=== PATIENT | male | born 1935 | race Caucasian/White ===

== ENCOUNTER 2018-01-10 07:40 | Outpatient (CLI) | payer MEDICARE, OTHER ==
[2018-01-10 10:57] LABS: ALBUMIN 3.9 g/dL (3.2-5.5); ALBUMIN/GLOBULIN RATIO 1.2 (1.0-2.2); ALKALINE PHOSPHATASE 59 IU/L (42-121); ALT ALANINE AMINOTRANSFERASE 27 IU/L (10-60); AST ASPARTATE AMINOTRANSFERASE 23 IU/L (10-42); BILIRUBIN,TOTAL 0.6 mg/dL (0.2-1.0); BUN - BLOOD UREA NITROGEN 16 mg/dL (6-20); CALCIUM 9.1 mg/dL (8.5-10.3); CARBON DIOXIDE - CO2 29 mmol/L (21-32); CHLORIDE 102 mmol/L (101-111); CHOL/HDL RATIO 4.3 (<5.0); CHOLESTEROL 169 mg/dL; CREATININE 0.9 mg/dL (0.6-1.2); GFR - MDRD 80 (>89); GLUCOSE 110 mg/dL (70-100); HDL CHOLESTEROL 39 mg/dL; LDL CHOLESTEROL,CALCULATED 100 mg/dL; LDL/HDL RATIO 2.6 (<3.6); SODIUM 137 mmol/L (135-145); TOTAL PROTEIN 7.1 g/dL (6.7-8.2); VLDL CHOLESTEROL 30 mg/dL
[2018-01-10 11:09] LABS: HEMOGLOBIN A1C 0.61 g/dL; HEMOGLOBIN A1C % 5.4 % (4.6-6.2)
== END 2018-01-10 07:41 | disposition home or self-care (01) ==
LOC: LAB.F 07:40
PROVIDERS: ATTEND Family Medicine
DX: R73.9 Hyperglycemia, unspecified (principal); I10 Essential (primary) hypertension; E87.5 Hyperkalemia; Z12.5 Encounter for screening for malignant neoplasm of prostate
CPT/HCPCS: 36415; 80053; 80061; 83036; G0103; 83721; 84153

== ENCOUNTER 2019-12-31 10:27 | Outpatient (CLI) | payer MEDICARE, OTHER ==
[2019-12-31 10:50] LABS: BASOPHILS # (AUTO) 0.1 10^3/uL (0.0-0.1); BASOPHILS % (AUTO) 0.9 %; EOSINOPHILS # (AUTO) 0.3 10^3/uL (0.0-0.7); EOSINOPHILS % (AUTO) 2.5 %; HGB - HEMOGLOBIN 15.2 g/dL (14.0-18.0); LYMPHOCYTES % (AUTO) 17.9 %; MEAN CORPUSCULAR HGB CONC 33.6 g/dL (32.0-36.0); MEAN CORPUSCULAR VOLUME 98.3 fL (80.0-94.0); MEAN PLATELET VOLUME 8.9 fL (7.4-11.4); MONOCYTES # (AUTO) 1.3 10^3/uL (0.0-1.0); MONOCYTES % (AUTO) 11.4 %; NEUTROPHILS # (AUTO) 7.3 10^3/uL (1.5-6.6); NEUTROPHILS % (AUTO) 65.9 %; PLT - PLATELET COUNT 221 10^3/uL (130-450); RED CELL DISTRIBUTION WIDTH 14.1 % (12.0-15.0); WHITE BLOOD COUNT 11.1 x10^3/uL (4.8-10.8)
[2019-12-31 11:06] LABS: ALBUMIN 4.5 g/dL (3.2-5.5); ALBUMIN/GLOBULIN RATIO 1.7 (1.0-2.2); BILIRUBIN,TOTAL 0.4 mg/dL (0.2-1.0); CALCIUM 9.1 mg/dL (8.5-10.3); CREATININE 0.8 mg/dL (0.6-1.2); TOTAL PROTEIN 7.2 g/dL (6.7-8.2)
== END 2019-12-31 10:28 | disposition home or self-care (01) ==
LOC: LAB 10:27
PROVIDERS: ATTEND Family Medicine
DX: D48.5 Neoplasm of uncertain behavior of skin (principal); I10 Essential (primary) hypertension
CPT/HCPCS: 36415; 80053; 84443; 85025

== ENCOUNTER 2020-03-08 16:34 | Outpatient (CLI) | payer MEDICARE, OTHER | END 2020-03-08 16:35 | disposition critical access hospital (66) | LOC: EMS 16:34 | PROVIDERS: ATTEND Surgery | DX: R06.02 Shortness of breath (principal); R00.0 Tachycardia, unspecified; R03.0 Elevated blood-pressure reading, without diagnosis of hypertension | CPT/HCPCS: A0425; A0427 ==

== ENCOUNTER 2020-03-08 17:03 | Emergency (ER) | payer MEDICARE, OTHER ==
--- NOTE | 2020-03-08 17:21 | ED Physician Documentation ---
PD HPI DYSPNEA - Stated complaint Stated Complaint: SOA - Chief complaint Chief Complaint: Cardiac - History obtained from History obtained from: Patient - History of Present Illness Timing - onset: How many weeks ago (1-2) Timing - onset during: Rest, Light activity Timing - duration: Weeks (1-2) Timing - details: Gradual onset Inciting event(s): No: URI, Immobilization/travel Worsened by: Exertion (The patient has noticed gradual worsening of dyspnea on exertion and then dyspnea at rest and orthopnea over the last 1 to 2 weeks. He has not had chest pain per se. He has noticed some swelling in his legs but mostly felt bloating of his abdomen. He has not had any cough. He denies any environm), Laying flat Associated symptoms: No: Fever, Cough Similar symptoms before: Has not had sx before Recently seen: Not recently seen Review of Systems Constitutional: reports: Fatigue. denies: Fever, Myalgias Nose: denies: Rhinorrhea / runny nose, Congestion Throat: denies: Sore throat Cardiac: reports: Chest pain / pressure (pressure without pain per se. No pleuritic pain.), Pedal edema. denies: Palpitations, Calf pain Respiratory: reports: Dyspnea. denies: Cough, Hemoptysis, Wheezing GI: reports: Abdominal Swelling. denies: Abdominal Pain, Nausea, Vomiting, Diarrhea : denies: Dysuria Musculoskeletal: denies: Neck pain, Back pain Neurologic: reports: Generalized weakness. 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 Good sats with NC 2 lpm. ) - General General: Alert and oriented X 3, Well developed/nourished, Other (He does appear anxious with increased work of breathing.) - HEENT HEENT: Pharynx benign, Other (Right lower eyelid with a demarcated raised granulomatous appearing skin lesion that he says it is stable for a while now) - Neck Neck: Supple, no meningeal sign, No adenopathy - Cardiac Cardiac: RRR, No murmur - Respiratory Respiratory: No: Clear bilaterally (There is some crackles at the bases. No wheezes noted. There is diminished breath sounds bilaterally.) - Abdomen Abdomen: Soft, Non tender - Back Back: No CVA TTP - Derm Derm: Normal color, Warm and dry - Extremities Extremities: Normal ROM s pain, No calf tenderness / cord, Other (1+ edema in both legs up to the knees) - Neuro Neuro: Alert and oriented X 3, No motor deficit, Normal speech Results - Vitals Vitals: Vital Signs - 24 hr 03/08/20 03/08/20 03/08/20 17:11 17:36 18:06 Temperature 36.3 C L Heart Rate 108 H 105 H 99 Respiratory 28 H 26 H 23 Rate Blood Pressure 146/92 H 148/95 H O2 Saturation 94 96 03/08/20 03/08/20 03/08/20 18:21 18:55 19:50 Temperature Heart Rate 75 85 90 Respiratory 22 20 18 Rate Blood Pressure 129/85 H 120/82 H 135/90 H O2 Saturation 92 94 94 03/08/20 03/08/20 20:23 21:07 Temperature Heart Rate 91 Respiratory 18 Rate Blood Pressure 118/81 H 124/87 H O2 Saturation 96 Oxygen O2 Source Nasal cannula Oxygen Flow Rate 2 - EKG (time done) 17:11 Rate: Rate (enter#) (102) Rhythm: Sinus tachycardia Intervals: LBBB Ischemia: ST depression (c/w LBBB), Non specific changes. No: ST elevation c/w ischemia - Labs Labs: Laboratory Tests 03/08/20 03/08/20 03/08/20 17:18 17:18 17:18 WBC 15.2 H RBC 4.22 L Hgb 14.3 Hct 42.2 MCV 100.0 H MCH 33.9 H MCHC 33.9 RDW 13.2 Plt Count 325 MPV 9.1 Neut # (Auto) 11.8 H Lymph # (Auto) 1.5 Carlton # (Auto) 1.7 H Eos # (Auto) 0.1 Baso # (Auto) 0.1 Absolute Nucleated RBC 0.00 Band Neuts % (Manual) Not Reportable Abnorm Lymph % (Manual) Not Reportable Nucleated RBC % 0.0 Neutrophils # (Manual) Not Reportable Lymphocytes # (Manual) Not Reportable Monocytes # (Manual) Not Reportable Eosinophils # (Manual) Not Reportable Basophils # (Manual) Not Reportable Differential Comment MANUAL=AUTO DIFF Manual Slide Review Indicated Platelet Estimate NORMAL (130-450,000) Platelet Morphology NORMAL APPEARANCE RBC Morph Micro Appear NORMAL APPEARANCE Sodium 129 L Potassium 4.8 Chloride 95 L Carbon Dioxide 22 Anion Gap 12.0 BUN 25 H Creatinine 0.9 Estimated GFR (MDRD) 80 L Glucose 149 H Calcium 9.1 Magnesium Total Bilirubin 0.8 AST 45 H ALT 91 H Alkaline Phosphatase 74 Troponin I High Sens 1613.7 H* B-Natriuretic Peptide Total Protein 7.0 Albumin 4.0 Globulin 3.0 Albumin/Globulin Ratio 1.3 Lipase 21 L 03/08/20 03/08/20 17:18 17:18 WBC RBC Hgb Hct MCV MCH MCHC RDW Plt Count MPV Neut # (Auto) Lymph # (Auto) Carlton # (Auto) Eos # (Auto) Baso # (Auto) Absolute Nucleated RBC Band Neuts % (Manual) Abnorm Lymph % (Manual) Nucleated RBC % Neutrophils # (Manual) Lymphocytes # (Manual) Monocytes # (Manual) Eosinophils # (Manual) Basophils # (Manual) Differential Comment Manual Slide Review Platelet Estimate Platelet Morphology RBC Morph Micro Appear Sodium Potassium Chloride Carbon Dioxide Anion Gap BUN Creatinine Estimated GFR (MDRD) Glucose Calcium Magnesium 2.3 Total Bilirubin AST ALT Alkaline Phosphatase Troponin I High Sens B-Natriuretic Peptide 2450 H Total Protein Albumin Globulin Albumin/Globulin Ratio Lipase - Rads (name of study) chest xray Radiology: Prelim report reviewed (Enlarged heart with CHF. Mild effusions bilaterally. No infiltrates.), See rad report PD MEDICAL DECISION MAKING - ED course Complexity details: reviewed results (Troponin, BNP both quite elevated and chest x-ray showing cardiomegaly and pulmonary edema.), re-evaluated patient (Improving breathing some with the nebulizer but primarily then with nitro morphine and Lasix.), considered differential (Initially could not tell for sure heart versus lung or even environmental such as asthma. Given a nebulizer treatment initially as there was diminished breath sounds. However chest x-ray subsequently showing significant pulmonary edema.), d/w patient, d/w consultant [employer] vice president [employer] (ex ) (Hospitalist at [facility] ([facility] did not have bed availability).) Departure - Departure Disposition: 02 Transfer Acute Care Hosp Clinical Impression: Elevated troponin Acute CHF (congestive heart failure) Qualifiers: Heart failure type: unspecified Qualified Code(s): I50.9 - Heart failure, unspecified Dyspnea Qualifiers: Dyspnea type: shortness of breath Qualified Code(s): R06.02 - Shortness of breath Condition: Stable Record reviewed to determine appropriate education?: Yes
[2020-03-08 17:27] LABS: BASOPHILS # (AUTO) 0.1 10^3/uL (0.0-0.1); BASOPHILS % (AUTO) 0.5 %; EOSINOPHILS # (AUTO) 0.1 10^3/uL (0.0-0.7); EOSINOPHILS % (AUTO) 0.5 %; HGB - HEMOGLOBIN 14.3 g/dL (14.0-18.0); LYMPHOCYTES # (AUTO) 1.5 10^3/uL (1.5-3.5); LYMPHOCYTES % (AUTO) 9.6 %; MEAN CORPUSCULAR HEMOGLOBIN 33.9 pg (27.0-31.0); MEAN CORPUSCULAR HGB CONC 33.9 g/dL (32.0-36.0); MEAN PLATELET VOLUME 9.1 fL (7.4-11.4); MONOCYTES # (AUTO) 1.7 10^3/uL (0.0-1.0); MONOCYTES % (AUTO) 10.9 %; NEUTROPHILS # (AUTO) 11.8 10^3/uL (1.5-6.6); NEUTROPHILS % (AUTO) 77.3 %; PLT - PLATELET COUNT 325 10^3/uL (130-450); RED BLOOD COUNT 4.22 10^6/uL (4.70-6.10); RED CELL DISTRIBUTION WIDTH 13.2 % (12.0-15.0); WHITE BLOOD COUNT 15.2 x10^3/uL (4.8-10.8)
[2020-03-08 17:40] LABS: ALBUMIN/GLOBULIN RATIO 1.3 (1.0-2.2); BILIRUBIN,TOTAL 0.8 mg/dL (0.2-1.0); CALCIUM 9.1 mg/dL (8.5-10.3); CREATININE 0.9 mg/dL (0.6-1.2)
[2020-03-08] MEDS: DEXAMETHASONE 10 MG/ML VIAL IVP STA (17:46)
[2020-03-08 17:52] LABS: PLATELET ESTIMATE, MANUAL NORMAL (130-450,000) (NORMAL); PLATELET MORPHOLOGY NORMAL APPEARANCE (NORMAL); RBC MORPHOLOGY (MULTIPLE) NORMAL APPEARANCE (NORMAL)
[2020-03-08 17:53] LABS: DIFFERENTIAL COMMENT MANUAL=AUTO DIFF
--- NOTE | 2020-03-08 17:59 | XRAY Report ---
PROCEDURE: Chest 1 View X-Ray INDICATIONS: Chest pain TECHNIQUE: One view of the chest was acquired. COMPARISON: None. FINDINGS: Surgical changes and devices: None. Lungs and pleura: Lung volumes are low. There are small bilateral pleural effusions, slightly greater on the right than on the left. There is diffuse interstitial opacities. Mediastinum: Heart is markedly enlarged. Bones and chest wall: No suspicious bony lesions. Overlying soft tissues appear unremarkable. IMPRESSION: Cardiomegaly, pleural effusions, and diffuse interstitial opacities suggesting fluid overload likely in the setting of congestive failure. Reviewed by: Omayra Rossi MD on 03/08/2020 5:57 PM PDT Approved by: Omayra Rossi MD on 03/08/2020 5:57 PM PDT Station ID: [id number]
[2020-03-08] MEDS: ALBUTEROL NEB 2.5 MG/3 ML INH STA (18:06)
[2020-03-08] MEDS: ASPIRIN CHEW 81 MG TABLET PO STA (18:13)
[2020-03-08] MEDS: NITROGLYCERIN SL 0.4 MG TABLET SL STA (18:13)
[2020-03-08] MEDS: FUROSEMIDE 40 MG/4 ML VIAL IVP STA ×2 (18:13→19:33)
[2020-03-08] MEDS: METOPROLOL 5 MG/5 ML VIAL IVP STA (18:13)
[2020-03-08] MEDS: HEPARIN 25,000 UNITS/500 ML PREMIX IV SCH (20:30)
[2020-03-08 22:18] VITALS: BP 130/88
== END 2020-03-08 23:07 | disposition short-term general hospital (02) ==
LOC: EDUNIT# → ED 17:03
DX: I11.0 Hypertensive heart disease with heart failure (principal); I50.9 Heart failure, unspecified; R09.02 Hypoxemia; I44.7 Left bundle-branch block, unspecified; R79.89 Other specified abnormal findings of blood chemistry
CPT/HCPCS: 36415; 71045; 80053; 83690; 83735; 83880; 84484; 85025; 93005; 94640; 96374; 96375; 96376; 99284; 99285; A9270

== ENCOUNTER 2021-07-31 09:04 | Outpatient (CLI) | payer MEDICARE, OTHER ==
[2021-07-31 09:57] LABS: BASOPHILS # (AUTO) 0.1 10^3/uL (0.0-0.1); BASOPHILS % (AUTO) 0.8 %; EOSINOPHILS # (AUTO) 0.4 10^3/uL (0.0-0.7); EOSINOPHILS % (AUTO) 2.8 %; HCT - HEMATOCRIT 34.4 % (42.0-52.0); HGB - HEMOGLOBIN 10.9 g/dL (14.0-18.0); LYMPHOCYTES # (AUTO) 1.8 10^3/uL (1.5-3.5); LYMPHOCYTES % (AUTO) 14.2 %; MEAN CORPUSCULAR HGB CONC 31.7 g/dL (32.0-36.0); MEAN CORPUSCULAR VOLUME 88.4 fL (80.0-94.0); MEAN PLATELET VOLUME 8.9 fL (7.4-11.4); MONOCYTES # (AUTO) 1.4 10^3/uL (0.0-1.0); NEUTROPHILS # (AUTO) 8.6 10^3/uL (1.5-6.6); NEUTROPHILS % (AUTO) 70.1 %; PLT - PLATELET COUNT 268 10^3/uL (130-450); RED BLOOD COUNT 3.89 10^6/uL (4.70-6.10); RED CELL DISTRIBUTION WIDTH 16.6 % (12.0-15.0); WHITE BLOOD COUNT 12.3 x10^3/uL (4.8-10.8)
[2021-07-31 10:21] LABS: ALBUMIN 3.8 g/dL (3.2-5.5); ALBUMIN/GLOBULIN RATIO 1.4 (1.0-2.2); ALKALINE PHOSPHATASE 62 IU/L (42-121); ALT ALANINE AMINOTRANSFERASE 17 IU/L (10-60); AST ASPARTATE AMINOTRANSFERASE 20 IU/L (10-42); BILIRUBIN,TOTAL 0.8 mg/dL (0.2-1.0); BUN - BLOOD UREA NITROGEN 29 mg/dL (6-20); CARBON DIOXIDE - CO2 22 mmol/L (21-32); CHLORIDE 104 mmol/L (101-111); CHOLESTEROL 96 mg/dL; CREATININE 1.1 mg/dL (0.6-1.2); GFR - MDRD 63 (>89); GLUCOSE 109 mg/dL (70-100); HDL CHOLESTEROL 32 mg/dL; LDL CHOLESTEROL,CALCULATED 44 mg/dL; LDL/HDL RATIO 1.4 (<3.6); POTASSIUM 4.6 mmol/L (3.5-5.0); SODIUM 136 mmol/L (135-145); TOTAL PROTEIN 6.6 g/dL (6.7-8.2); TRIGLYCERIDES 100 mg/dL; VLDL CHOLESTEROL 20 mg/dL
[2021-07-31 10:30] LABS: ESTIMATED AVERAGE GLUCOSE 131 mg/dL (70-100); HEMOGLOBIN A1c% 6.2 % (4.27-6.07)
[2021-07-31 10:33] LABS: THYROID STIMULATING HORMONE 0.73 uIU/mL (0.34-5.60)
== END 2021-07-31 09:05 | disposition home or self-care (01) ==
LOC: LAB 09:04
PROVIDERS: ATTEND Family Medicine
DX: I11.0 Hypertensive heart disease with heart failure (principal); I50.22 Chronic systolic (congestive) heart failure; R01.1 Cardiac murmur, unspecified; R73.9 Hyperglycemia, unspecified; C43.9 Malignant melanoma of skin, unspecified; E78.5 Hyperlipidemia, unspecified
CPT/HCPCS: 36415; 80053; 80061; 83036; 83721; 83880; 84443; 85025

== ENCOUNTER 2021-08-04 02:03 | Outpatient (CLI) | payer MEDICARE, OTHER | END 2021-08-04 02:04 | disposition critical access hospital (66) | LOC: EMS 02:03 | DX: Z04.3 Encounter for examination and observation following other accident (principal); M25.551 Pain in right hip; R53.1 Weakness | CPT/HCPCS: A0425; A0427 ==

== ENCOUNTER 2021-08-04 02:31 | Emergency (ER) | payer MEDICARE, OTHER ==
--- NOTE | 2021-08-04 02:47 | ED Physician Documentation ---
History of Present Illness - Stated complaint Stated Complaint: GLF, RIGHT HIP PAIN - Chief complaint Chief Complaint: Trauma Ext - History obtained from History obtained from: Patient, EMS - Additonal information Additional information: 86yM p/w GLF onto R hip this morning. mechanical fall picking up q tips from the ground. sudden severe sharp constant pain to R hip, nonradiating, a/w shortening of the leg. no numbness. able to move leg. pain improved with 50ucg fentanyl IV en route by ems. 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) - Past Surgical History Past Surgical History: Yes - Present Medications Home Medications: Ambulatory Orders Medication Instructions Recorded Confirmed Atorvastatin [Lipitor] 08/04/21 FUROSEMIDE INJ 20mg VIAL [LASIX 08/04/21 INJ 20mg VIAL] Lisinopril [Zestril] 20 mg PO 08/04/21 Metoprolol Succinate [Toprol Xl] 08/04/21 Spironolactone [Aldactone] 08/04/21 - Allergies Allergies/Adverse Reactions: Allergies Allergy/AdvReac Type Severity Reaction Status Date / Time No Known Drug Allergies Allergy Verified 03/08/20 17:15 - Social History Does the pt smoke?: No Smoking Status: Former smoker Does the pt drink ETOH?: No Does the pt have substance abuse?: No - Immunizations Immunizations are current?: Yes PD ED PE NORMAL - Vitals Vital signs reviewed: Yes - General General: Alert and oriented X 3, No acute distress, Well developed/nourished - HEENT HEENT: Atraumatic, PERRL, EOMI - Derm Derm: Normal color, Warm and dry - Extremities Extremities: Other (R leg shortened and externally rotated. 2+ dp pulse. normal movement and sensation. pain with any movement of RLE) - Neuro Neuro: No motor deficit, No sensory deficit - Psych Psych: Normal mood, Normal affect Results - Vitals Vitals: Vital Signs - 24 hr 08/04/21 08/04/21 02:36 04:39 Temperature 36.8 C Heart Rate 66 70 Respiratory 20 18 Rate Blood Pressure 155/100 H 129/70 O2 Saturation 97 96 Oxygen O2 Source Room air - Labs Labs: Laboratory Tests 08/04/21 08/04/21 05:31 05:31 WBC 15.9 H RBC 3.58 L Hgb 10.0 L Hct 31.9 L MCV 89.1 MCH 27.9 MCHC 31.3 L RDW 16.6 H Plt Count 223 MPV 8.4 Neut # (Auto) 13.1 H Lymph # (Auto) 1.1 L Tompkins # (Auto) 1.4 H Eos # (Auto) 0.1 Baso # (Auto) 0.1 Absolute Nucleated RBC 0.00 Nucleated RBC % 0.0 Sodium 138 Potassium 4.5 Chloride 105 Carbon Dioxide 24 Anion Gap 9.0 BUN 35 H Creatinine 1.1 Estimated GFR (MDRD) 63 L Glucose 144 H Calcium 8.8 Total Bilirubin 0.5 AST 19 ALT 16 Alkaline Phosphatase 66 Total Protein 6.7 Albumin 3.8 Globulin 2.9 Albumin/Globulin Ratio 1.3 Lipase 26 PD MEDICAL DECISION MAKING - ED course ED course: 86yM p/w R hip deformity, likely dislocation versus fracture. will obtain xrays to evaluate. Patient with R hip fracture. d/w Dr. Olea, orthopedist dairy feed sales consultant who says he's not available today or over the weekend to operate. I discussed with him that we will have significant trouble finding a place to transfer him to and the patient may still be here on saturday. He says if the patient is still here saturday he can operate then. d/w formerly [facility] transfer salters Svetlana who will have a doctor call us back. d/w Dr. Svetlana Georges, ortho doc dairy feed sales consultant for [facility]. will transfer ED-ED. Departure - Departure Disposition: 02 Transfer Acute Care Hosp Clinical Impression: Hip fracture, Fall from standing Condition: Stable
[2021-08-04 05:37] LABS: BASOPHILS # (AUTO) 0.1 10^3/uL (0.0-0.1); BASOPHILS % (AUTO) 0.4 %; EOSINOPHILS # (AUTO) 0.1 10^3/uL (0.0-0.7); EOSINOPHILS % (AUTO) 0.6 %; HCT - HEMATOCRIT 31.9 % (42.0-52.0); LYMPHOCYTES # (AUTO) 1.1 10^3/uL (1.5-3.5); LYMPHOCYTES % (AUTO) 6.9 %; MEAN CORPUSCULAR HEMOGLOBIN 27.9 pg (27.0-31.0); MEAN CORPUSCULAR HGB CONC 31.3 g/dL (32.0-36.0); MEAN CORPUSCULAR VOLUME 89.1 fL (80.0-94.0); MEAN PLATELET VOLUME 8.4 fL (7.4-11.4); MONOCYTES # (AUTO) 1.4 10^3/uL (0.0-1.0); MONOCYTES % (AUTO) 8.5 %; NEUTROPHILS # (AUTO) 13.1 10^3/uL (1.5-6.6); NEUTROPHILS % (AUTO) 82.4 %; PLT - PLATELET COUNT 223 10^3/uL (130-450); RED BLOOD COUNT 3.58 10^6/uL (4.70-6.10); RED CELL DISTRIBUTION WIDTH 16.6 % (12.0-15.0); WHITE BLOOD COUNT 15.9 x10^3/uL (4.8-10.8)
[2021-08-04 05:49] LABS: ALBUMIN 3.8 g/dL (3.2-5.5); ALBUMIN/GLOBULIN RATIO 1.3 (1.0-2.2); BILIRUBIN,TOTAL 0.5 mg/dL (0.2-1.0); CALCIUM 8.8 mg/dL (8.5-10.3); CREATININE 1.1 mg/dL (0.6-1.2); POTASSIUM 4.5 mmol/L (3.5-5.0); TOTAL PROTEIN 6.7 g/dL (6.7-8.2)
[2021-08-04 06:06] VITALS: BP 148/74
[2021-08-04] MEDS ORDERED: fentaNYL 100 MCG/2 ML VIAL IVP STA (06:32)
[2021-08-04 06:43] LABS: B. PARAPERTUSSIS- RESP PCR PAN NOT DETECTED; B. PERTUSSIS- RESP PCR PANEL NOT DETECTED; C. PNEUMONIAE- RESP PCR PANEL NOT DETECTED; CORONAVIRUS 229E-RESP PCR NOT DETECTED; CORONAVIRUS HKU1-RESP PCR NOT DETECTED; CORONAVIRUS NL63-RESP PCR NOT DETECTED; CORONAVIRUS OC43-RESP PCR NOT DETECTED; HUMAN METAPNEUMOVIRUS NOT DETECTED; INFLUENZA A- RESP PCR PANEL NOT DETECTED; INFLUENZA B - RESP PCR PANEL NOT DETECTED; M. PNEUMONIAE- RESP PCR PANEL NOT DETECTED; PARAINFLUENZA VIRUS 1 NOT DETECTED; PARAINFLUENZA VIRUS 2 NOT DETECTED; PARAINFLUENZA VIRUS 3 NOT DETECTED; PARAINFLUENZA VIRUS 4 NOT DETECTED; RHINOVIRUS/ENTEROVIRUS NOT DETECTED; RSV- RESP PCR PANEL NOT DETECTED; SARS-CoV-2 -RESP PCR PANEL NOT DETECTED
--- NOTE | 2021-08-04 08:03 | XRAY Report ---
PROCEDURE: Chest 1 View X-Ray INDICATIONS: preop cxr TECHNIQUE: One view of the chest was acquired. COMPARISON: Chest x-ray 03/08/2020. FINDINGS: Surgical changes and devices: None. Lungs and pleura: No pleural effusions or pneumothorax. Lungs are clear. Mediastinum: Mediastinal contours appear normal. Heart size is not increased. Bones and chest wall: No suspicious bony lesions. Overlying soft tissues appear unremarkable. IMPRESSION: Mild cardiomegaly. No acute cardiopulmonary disease. No significant discrepancy with the preliminary interpretation. Reviewed by: Lori Herrera MD on 08/04/2021 8:02 AM [facility] Approved by: Lori Herrera MD on 08/04/2021 8:02 AM PST Station ID: [id number]
--- NOTE | 2021-08-04 08:14 | XRAY Report ---
PROCEDURE: Hip w/Pelvis 2-3V RT INDICATIONS: Right hip deformity s/p fall TECHNIQUE: AP pelvis with lateral view(s) of the right hip(s). COMPARISON: None. FINDINGS: Bones: There is a comminuted intertrochanteric fracture with angulation and superior migration of the distal fracture fragment. Hip joint is anatomically seated. Moderate degenerative joint disease in h ips and sacroiliac joints bilaterally. 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 Pelvic ring appears intact. No suspicious bony lesions. Soft tissues: The visualized bowel gas pattern is normal. No suspicious soft tissue calcifications. IMPRESSION: Comminuted intertrochanteric fracture. No significant discrepancy with the preliminary interpretation. Reviewed by: Lori Herrera MD on 08/04/2021 8:12 AM PST Approved by: Lori Herrera MD on 08/04/2021 8:12 AM [facility] Station ID: [id number]
== END 2021-08-04 07:05 | disposition short-term general hospital (02) ==
LOC: EDBD → EDUNIT# → ED 02:31
DX: S72.141A Displaced intertrochanteric fracture of right femur, initial encounter for closed fracture (principal); W18.30XA Fall on same level, unspecified, initial encounter; I10 Essential (primary) hypertension; Z87.891 Personal history of nicotine dependence; Z20.822 Contact with and (suspected) exposure to COVID-19
CPT/HCPCS: 0202U; 36415; 80053; 83690; 85025; 96374; 99282

== ENCOUNTER 2021-08-04 06:57 | Outpatient (CLI) | payer MEDICARE, OTHER | END 2021-08-04 06:58 | disposition short-term general hospital (02) | LOC: EMS 06:57 | PROVIDERS: ATTEND Emergency Medicine | DX: S72.141A Displaced intertrochanteric fracture of right femur, initial encounter for closed fracture (principal); W18.30XA Fall on same level, unspecified, initial encounter | CPT/HCPCS: A0425; A0428 ==

== ENCOUNTER 2022-11-29 07:16 | Outpatient (CLI) | payer MEDICARE, OTHER ==
[2022-11-29 14:47] LABS: BASOPHILS # (AUTO) 0.1 10^3/uL (0.0-0.1); BASOPHILS % (AUTO) 0.7 %; EOSINOPHILS # (AUTO) 0.4 10^3/uL (0.0-0.7); HCT - HEMATOCRIT 28.1 % (42.0-52.0); HGB - HEMOGLOBIN 8.3 g/dL (14.0-18.0); LYMPHOCYTES # (AUTO) 1.6 10^3/uL (1.5-3.5); LYMPHOCYTES % (AUTO) 17.1 %; MEAN CORPUSCULAR HEMOGLOBIN 27.8 pg (27.0-31.0); MEAN CORPUSCULAR HGB CONC 29.5 g/dL (32.0-36.0); MEAN PLATELET VOLUME 9.3 fL (7.4-11.4); MONOCYTES # (AUTO) 1.1 10^3/uL (0.0-1.0); MONOCYTES % (AUTO) 11.3 %; NEUTROPHILS # (AUTO) 6.2 10^3/uL (1.5-6.6); NEUTROPHILS % (AUTO) 65.6 %; PLT - PLATELET COUNT 257 10^3/uL (130-450); RED BLOOD COUNT 2.99 10^6/uL (4.70-6.10); RED CELL DISTRIBUTION WIDTH 16.9 % (12.0-15.0); WHITE BLOOD COUNT 9.5 x10^3/uL (4.8-10.8)
[2022-11-29 14:59] LABS: ALBUMIN 3.5 g/dL (3.2-5.5); ALBUMIN/GLOBULIN RATIO 1.3 (1.0-2.2); ALKALINE PHOSPHATASE 52 IU/L (42-121); ALT ALANINE AMINOTRANSFERASE 16 IU/L (10-60); AST ASPARTATE AMINOTRANSFERASE 18 IU/L (10-42); BILIRUBIN,TOTAL 0.5 mg/dL (0.2-1.0); BUN - BLOOD UREA NITROGEN 23 mg/dL (6-20); CALCIUM 8.7 mg/dL (8.5-10.3); CARBON DIOXIDE - CO2 27 mmol/L (21-32); CHLORIDE 105 mmol/L (101-111); CHOL/HDL RATIO 2.7 (<5.0); CHOLESTEROL 92 mg/dL; CREATININE 0.9 mg/dL (0.6-1.2); GFR - MDRD 79 (>89); GLUCOSE 115 mg/dL (70-100); HDL CHOLESTEROL 34 mg/dL; LDL CHOLESTEROL,CALCULATED 46 mg/dL; LDL/HDL RATIO 1.4 (<3.6); POTASSIUM 4.7 mmol/L (3.5-5.0); SODIUM 138 mmol/L (135-145); TOTAL PROTEIN 6.2 g/dL (6.7-8.2); TRIGLYCERIDES 58 mg/dL; VLDL CHOLESTEROL 12 mg/dL
[2022-11-29 17:30] LABS: THYROID STIMULATING HORMONE 0.5 uIU/mL (0.34-5.60)
[2022-11-29 20:22] LABS: ESTIMATED AVERAGE GLUCOSE 131 mg/dL (70-100); HEMOGLOBIN A1c% 6.2 % (4.27-6.07)
[2022-11-30 08:45] LABS: % IRON SATURATION 4 % (20-50); IRON 18 ug/dL (45-182); TOTAL IRON BINDING CAPACITY 400 ug/dL (250-450); TRANSFERRIN 286 mg/dL (180-329)
[2022-11-30 09:00] LABS: FERRITIN 4.8 ng/mL (23.9-336.2)
== END 2022-11-29 07:17 | disposition home or self-care (01) ==
LOC: LAB.S 07:16
PROVIDERS: ATTEND Family Medicine
DX: R73.03 Prediabetes (principal); J44.9 Chronic obstructive pulmonary disease, unspecified; I11.0 Hypertensive heart disease with heart failure; I50.22 Chronic systolic (congestive) heart failure; D64.9 Anemia, unspecified
CPT/HCPCS: 36415; 80053; 80061; 82607; 82728; 83036; 83540; 83721; 84443; 84466; 85025